=== PATIENT | male | born 1945 | race Caucasian/White ===

== ENCOUNTER 2023-08-06 08:37 | Outpatient (RCR) | payer MEDICARE, OTHER, SELFPAY | END 2023-08-06 23:59 | disposition home or self-care (01) | LOC: CRHB 08:37 | PROVIDERS: ATTENDING PHYSICIAN Internal Medicine Cardiovascular Disease | DX: I25.10 Atherosclerotic heart disease of native coronary artery without angina pectoris (principal); Z95.5 Presence of coronary angioplasty implant and graft; I25.2 Old myocardial infarction | CPT/HCPCS: G0422; G0423 ==

== ENCOUNTER → 2023-08-21 07:03 | Outpatient (REF) | payer MEDICARE, OTHER, SELFPAY ==
[2023-08-21 08:37] LABS: ALT (SGPT) 24 U/L (0-50); AST (SGOT) 27 U/L (17-59); HDL Cholesterol 41 mg/dl; LDL Cholesterol, Calculated 39 mg/dl; Total Cholesterol 113 mg/dl (50-199); Triglyceride 165 mg/dl (10-149); Very Low Density Lipoprotein 33 mg/dl (0-30)
== END ==
LOC: REG 07:03
PROVIDERS: ATTENDING PHYSICIAN Nurse Practitioner
DX: I25.10 Atherosclerotic heart disease of native coronary artery without angina pectoris (principal); I25.2 Old myocardial infarction
CPT/HCPCS: 36415; 80061; 84450; 84460

== ENCOUNTER 2023-09-03 08:55 | Outpatient (RCR) | payer MEDICARE, OTHER, SELFPAY | END 2023-09-03 23:59 | disposition home or self-care (01) | LOC: CRHB 08:55 | PROVIDERS: ATTENDING PHYSICIAN Internal Medicine Cardiovascular Disease; FAMILY PHYSICIAN Family Medicine | DX: I21.4 Non-ST elevation (NSTEMI) myocardial infarction (principal); Z95.5 Presence of coronary angioplasty implant and graft; I25.10 Atherosclerotic heart disease of native coronary artery without angina pectoris | CPT/HCPCS: G0422; G0423 ==

== ENCOUNTER 2023-09-15 09:55 | Outpatient (RCR) | payer MEDICARE, OTHER, SELFPAY | END 2023-09-15 23:59 | disposition home or self-care (01) | LOC: CRHB 09:55 | PROVIDERS: ATTENDING PHYSICIAN Internal Medicine Cardiovascular Disease; FAMILY PHYSICIAN Family Medicine | DX: I25.10 Atherosclerotic heart disease of native coronary artery without angina pectoris (principal); Z95.5 Presence of coronary angioplasty implant and graft | CPT/HCPCS: G0422; G0423 ==

== ENCOUNTER 2023-09-16 10:30 | Inpatient (IN) | payer MEDICARE, OTHER, SELFPAY ==
[2023-09-15] VITALS (7 sets, daily range): BP systolic 94–126; BP diastolic 63–85; BMI 32.5; BMI 30.6
[2023-09-15 15:50] LABS: % Basophils 0.5 % (0-2); % Eosinophils 1.4 % (0-6); % Immature Granulocytes 0.4 % (0-0.5); % Lymphocytes 34.8 % (20.5-51.1); % Monocytes 11.7 % (1.7-9.3); % Neutrophils 51.2 % (42.2-75.2); Absolute Eosinophils 0.1 10^3/uL (0-0.7); Absolute Lymphocytes 2.8 10^3/uL (1.2-3.4); Absolute Neutrophils 4.2 10^3/uL (1.4-6.5); Hematocrit 40.1 % (39.0-52.0); Hemoglobin 13.8 g/dL (13.0-18.0); Mean Corp Hgb Conc. 34.4 g/dL (33.0-37.0); Mean Corpuscular Hgb 30.5 pg (27.0-31.0); Mean Corpuscular Volume 88.7 fL (80.0-94.0); Mean Platelet Volume 10.4 fL (7.4-10.4); Nucleated Red Blood Cells % 0 % (-); Platelet Count 244 10^3/uL (130-400); Red Blood Cell Count 4.52 10^6/uL (4.70-6.10); Red Cell Dist. Width 12.3 % (11.5-14.5); White Blood Cell Count 8.1 10^3/uL (4.8-10.8)
[2023-09-15 16:04] LABS: ALT (SGPT) 27 U/L (0-50); AST (SGOT) 35 U/L (17-59); Albumin 4.5 g/dl (3.5-5.0); Alkaline Phosphatase 67 U/L (38-126); Blood Urea Nitrogen 19 mg/dl (9-20); Calcium 9.6 mg/dl (8.4-10.2); Carbon Dioxide 22 mmol/L (22-30); Chloride 101 mmol/L (98-107); Estimated Creatinine Clearance 84 ml/min; Glucose 123 mg/dl (70-99); Sodium 135 mmol/L (135-145); Total Bilirubin 0.6 mg/dl (0.2-1.3); Total Protein 7.6 g/dl (6.3-8.2); eGFR > 60.00
[2023-09-15 16:14] LABS: Troponin I < 0.012 ng/ml
--- NOTE | 2023-09-15 17:52 | ED.GENMED ---
History of Present Illness
General
Chief Complaint: Fainting/Passed Out
Source: patient
Exam Limitations: none
Time Seen by Provider: 09/15/23 16:57
Nursing documentation reviewed up to this point in time: agreed with
Travel History
Have you had any contact with someone who has COVID-19?: No
Do you have any symptoms of coronavirus? Fever > 100 degrees, chills, cough, shortness of breath, sore throat, loss of taste or smell, muscle aches, or headache?: No
History of Present Illness
History of Present Illness:
77-year-old male presents emergency ferment due to syncope episode. He was sitting on a bench after gardening, and passed out and fell forward onto his face. He does not remember the event. He denies have any symptoms prior to it. He hit his
nose. He takes Plavix.
Past History
Past History
ED Past Medical History: Other (Hepatitis C , Vertigo)
ED Past Surgical History: Appendectomy
Social History
Tobacco: Non-smoker
Alcohol: Occasional
Personal:
Living: with family
Family History
Family History: Diabetes and Hypertension
Review of Systems
Review of Systems
Allergies reviewed?: Yes
All Other Systems: Not applicable
Constitutional: Reports no symptoms
EENT: Reports no symptoms
Respiratory: Reports no symptoms
Cardiac: Reports syncope
ABD/GI: Reports no symptoms
: Reports no symptoms
Musculoskeletal: Reports no symptoms
Skin: Reports no symptoms
Neurological: Reports no symptoms
Endocrine: Reports no symptoms
Hematologic/Lymphatic: Reports no symptoms
Psychiatric: Reports no symptoms
Phy Exam
Physical Exam
Physical Exam:
Physical Exam
General: no apparent distress, not acutely ill
Neck: supple. no meningeal signs. normal posterior pharynx
Heart: s1/s2 regular rate and rhythm, no murmur. equal radial
pulses.
HEENT: Pupils equal round reactive to light, EOMI, nasal swelling
Lungs: no acute respiratory distress. clear bilaterally
Abdomen: normal bowel sounds. not tender. no CVAT
Neuro: alert and oriented. no focal neurological deficits cranial nerves II through XII intact
Skin: no rash
Psychiatric: well kept. interactive and cooperative
Extremities: no edema. no calf tenderness. negative homans. good distal pulses
Course
Orders/Labs/Results
Orders:
Orders
09/15/23 15:25
EKG [Electrocardiogram (*1)] Urgent
Reason for Study: Syncope
EKG- Treatment ONCE
09/15/23 15:34
Complete Blood Count/With Diff Urgent
Comprehensive Metabolic Panel Urgent
Troponin I Urgent
09/15/23 17:50
CT Head W/o Iv Contrast Urgent
Comment:
Reason For Exam: syncope, fall
Abnormal Lab Results
09/15/23
15:34
RBC 4.52 L 10^6/uL
(4.70-6.10)
Absolute Monos (auto) 1.0 H 10^3/uL
(0.1-0.6)
Monocytes % 11.7 H %
(1.7-9.3)
Glucose 123 H mg/dl
(70-99)
09/15/23 15:34
09/15/23 15:34
Vital Signs
Initial and Last Documented VS:
Initial Vital Signs
BP
106/78
09/15/23 15:29
Last Documented Vital Signs
Temp Pulse Resp BP Pulse Ox
98.6 F 64 15 106/69 96
09/15/23 15:31 09/15/23 18:30 09/15/23 18:30 09/15/23 18:00 09/15/23 18:30
MDM/Problems Addressed
Differential Diagnosis Includes:
Dysrhythmia, intracranial hemorrhage
MDM/Problems Addressed:
77-year-old male with syncope episode without prodrome. Vital signs stable in ED. No signs of dysrhythmia on monitor EKG. Admit for further monitoring.
Chronic conditions affecting care: CAD
Acute Exacerbation and/or Progression of Chronic Illness: CAD
*Radiology
Radiology exam reviewed: radiology read reviewed (CT head no acute findings)
*Pulse Oximetry
Patient hypoxic: no
*EKG
Interpreted by ED Provider?: Yes
EKG Intrepretation Date: 09/15/23
EKG Intrepretation Time: 15:28
Interpretation: normal
Comparison EKG: changes noted
Heart Rate: 74
Rate: normal
Rhythm: sinus
Linden: normal axis
Interval: normal interval
QRS Pattern: normal QRS
Ischemia: no ischemia
*Pulverizer Mill Operator Interpretation
Rate: normal
Interpretation: normal
Heart Rate: 75
Rhythm: sinus
*Critical Care Note
Total Time (30-74mins, 75-104mins- exclusive of procedures): Not Applicable
Data Reviewed
Review of Other/Old Records Reveals: Operative Reports
Source: records (Cardiac catheterization by Dr. Chavez on 06/30/2023 stent to mid LAD)
Further Testing Considered But Not Given:
CT chest not indicated
Patient Management
Social determinants of health affecting care: Living situation
Discussion with other providers: Hospitalist
Escalation/DeEscalation of care consider admission/obs:
Admit indicated
ED Attending Note
-
Portions of this chart may have been created with voice recognition software.� Occasional wrong word or��sound alike� substitutions may have occurred due to the inherent limitations of voice recognition software.
Discharge Plan
Departure
Patient Disposition: Admit
Date of Disposition: 09/15/23
Time of Disposition: 19:13
Admit to: Telemetry
Presentation/result/management discussed w/ accepting MD/DO: Hospitalist
Patient with high blood pressure during this ER visit?: No
Condition: Good
Discharge Problem:
Syncope and collapse, Contusion of nose
Prescriptions:
No Action
multivitamin with folic acid [Tab-A-Liz] 1 TABLET tablet
1 tab PO DAILY
atorvastatin 40 mg Tablet
40 mg PO QPM Qty: 30 0RF
nitroglycerin 0.4 mg Tablet, Sublingual
0.4 mg sublingual [id number] PRN (Reason: chest pain) Qty: 30 0RF
aspirin [Children's Aspirin] 81 mg Tablet,Chewable
81 mg PO DAILY Qty: 60 0RF
clopidogrel 75 mg Tablet
75 mg PO DAILY Qty: 30 0RF
metoprolol succinate 25 mg Tablet Extended Release 24 Hr
25 mg PO BID Qty: 60 0RF
lisinopril 2.5 mg Tablet
2.5 mg PO DAILY Qty: 30 0RF
Referrals:
Lilliam Batista MD [Family Provider] -
Interventions
Interventions:
*Risk Screen - Suicide Last Done: 09/15/23 15:32
*General Assessment Last Done: 09/15/23 15:32
*Neglect/Abuse Screening Last Done: 09/15/23 15:32
*ED COVID-19 Vaccine History Last Done: 09/15/23 15:32
ED- Cardiac Assessment Last Done: 09/15/23 15:33
ED- Neurological Assessment Last Done: 09/15/23 15:33
Discharge Date and Time
Print Language: SYRIAC
--- NOTE | 2023-09-15 19:40 | HPS.HSE ---
Addendum entered and electronically signed by Kathleen Riley MD 09/15/23 21:08:
Nasal xray cancelled since patient has CT head without evidence of nasal fracture.
Addendum entered and electronically signed by Kathleen Riley MD 09/15/23 19:45:
Cardiology consulted.
Original Note:
Family Physician
-
Family Physician: Lilliam Batista MD
Chief Complaint
-
syncope
History of Present Illness
77-year-old male past medical history of CAD, STEMI this June status post stent, ischemic cardiomyopathy, essential hypertension, prediabetes, GERD, hepatitis C status posttreatment, obesity, presenting with syncopal episode. He was sitting on a
bench after gardening and passed out and fell forward onto his face. He was unconscious for few seconds. He only remembers waking up with nasal pain and bleeding from the nose. Denies any preceding symptoms such as chest pain or shortness of
breath or nausea or dizziness. Denies any recent chest pain, shortness of breath, dizziness. He denies any prior episodes of syncope.
Patient recently had a STEMI in June status post LAD stenting. He has been attending cardiac rehab 3 times per week since then without any problems.
He denies smoking or alcohol.
Medical History
Past Medical History
Past Medical History: Reports Other ( CAD, STEMI this June status post stent, essential hypertension, prediabetes, GERD, hepatitis C status posttreatment, obesity)
Past Surgical History: Reports None
Social History
Tobacco: Non-smoker
Alcohol: None
Drug: None
Family History
Family History: Not pertinent
Allergies / Home Medications
Allergies reflects when Allergies were last updated in [facility].
Home Medications with original date entered in [facility]
Allergy/Medication List:
Allergies
Allergy/AdvReac Type Severity Reaction Status Date / Time
No Known Allergies Allergy Verified 09/15/23 15:24
Home Medications
clopidogrel 75 mg tablet 75 mg PO DAILY #30 tabs 07/02/23
lisinopril 2.5 mg tablet 2.5 mg PO DAILY #30 tabs 07/02/23
metoprolol succinate 25 mg tablet,extended release 24 hr 25 mg PO BID #60 tabs 07/02/23
aspirin 81 mg tablet,delayed release 81 mg PO DAILY 09/15/23
atorvastatin 20 mg tablet 20 mg PO QPM 09/15/23
cholecalciferol (vitamin D3) 25 mcg (1,000 unit) tablet 25 mcg PO DAILY 09/15/23
coenzyme Q10 100 mg capsule (CoQ-10) 100 mg PO BID 09/15/23
cyanocobalamin (vitamin B-12) 500 mcg tablet 500 mcg PO DAILY 09/15/23
multivitamin with folic acid 400 mcg tablet (Tab-A-Liz) 1 tab PO DAILY 09/15/23
Review of Systems
-
History Source: Patient
A 12 point ROS was completed and negative except as noted: Yes
Constitutional: Reports No Symptoms
EENT: Reports No Symptoms
Respiratory: Reports No Symptoms
Cardiac: Reports No Symptoms
Abdomen/GI: Reports No Symptoms
: Reports No Symptoms
Musculoskeletal: Reports No Symptoms
Skin: Reports No Symptoms
Neurological: Reports No Symptoms
Endocrine: Reports No Symptoms
Hematologic/Lymphatic: Reports No Symptoms
Psych: Reports No Symptoms
Physical Exam
Vital Signs
Vital Signs
Temp Pulse Resp BP Pulse Ox
98.6 F 64 15 106/69 96
09/15/23 15:31 09/15/23 18:30 09/15/23 18:30 09/15/23 18:00 09/15/23 18:30
Physical Exam
General: Well Developed, Well Nourished and No Apparent Distress
HEENT: NormoCephalic, Moist mucous membranes and Atraumatic
Respiratory: Clear
Cardiac: S1/S2 and Regular Rhythm; No Murmur or Rub
GI: Soft, Non Tender, Non Distended and Normal Bowel Sounds; No Organomegaly
Rectal: Deferred by Provider
Musculoskeletal: No Clubbing, No Cyanosis and No Edema
Skin: No Rash
Neuro: Nonfocal/grossly intact
Laboratory Results
-
09/15/23 15:34
09/15/23 15:34
Laboratory Results
Total Bilirubin 0.6 mg/dl (0.2-1.3) 09/15/23 15:34
AST 35 U/L (17-59) 09/15/23 15:34
ALT 27 U/L (0-50) 09/15/23 15:34
Alkaline Phosphatase 67 U/L (38-126) 09/15/23 15:34
Troponin I < 0.012 ng/ml 09/15/23 15:34
Data Reviewed
-
Lab Data: Labs Reviewed by me
Old Records: Reviewed
Impression/Plan
-
IMPRESSION:
PLAN:
# Syncopal episode without prodrome suggestive of cardiac arrhythmia
-CT head shows no acute intracranial abnormality
-EKG shows normal sinus rhythm,
-Telemetry monitoring
-Recent echo from June showed EF of 40%
# Nasal contusion
-No pain or bleeding currently
-Check nasal x-ray
# Coronary artery disease
# Recent STEMI status post LAD stent
-Continue aspirin, Plavix
#History of ischemic cardiomyopathy
-EF of 40%
Mild mitral regurgitation
Essential hypertension
-Continue lisinopril, metoprolol
Prediabetes
Hyperlipidemia
-Continue statin
GERD
History of HCV status posttreatment
Obesity
Full code
DVT prophylaxis�SCDs
Regular diet
[2023-09-15] MEDS: TOPROL XL 25 MG PO (21:50)
[2023-09-16 03:48] VITALS: BP 130/74
[2023-09-16 06:00] VITALS: BMI 30.6
[2023-09-16 07:30] VITALS: BP 146/89
[2023-09-16 08:20] LABS: % Basophils 0.4 % (0-2); % Eosinophils 1.9 % (0-6); % Immature Granulocytes 0.3 % (0-0.5); % Lymphocytes 23.4 % (20.5-51.1); % Monocytes 12.9 % (1.7-9.3); % Neutrophils 61.1 % (42.2-75.2); Absolute Eosinophils 0.1 10^3/uL (0-0.7); Absolute Lymphocytes 1.6 10^3/uL (1.2-3.4); Absolute Monocytes 0.9 10^3/uL (0.1-0.6); Absolute Neutrophils 4.2 10^3/uL (1.4-6.5); Hematocrit 41.2 % (39.0-52.0); Hemoglobin 13.8 g/dL (13.0-18.0); Mean Corp Hgb Conc. 33.5 g/dL (33.0-37.0); Mean Corpuscular Hgb 30.3 pg (27.0-31.0); Mean Corpuscular Volume 90.5 fL (80.0-94.0); Mean Platelet Volume 10.2 fL (7.4-10.4); Nucleated Red Blood Cells % 0 % (-); Platelet Count 219 10^3/uL (130-400); Red Blood Cell Count 4.55 10^6/uL (4.70-6.10); Red Cell Dist. Width 12.4 % (11.5-14.5); White Blood Cell Count 6.8 10^3/uL (4.8-10.8)
--- NOTE | 2023-09-16 08:32 | CON.CAR ---
Addendum entered and electronically signed by Subhash De MD 09/16/23 10:22:
I saw and examined the patient.
The INTERN ARCHITECT's note was reviewed and I agree with the note.
Comment: This is high-risk syncope. Given late presentation with anterior W[place] in late Jun 2023 and EF 40% at that time and now abrupt syncope with trauma and no real prodrome the DDx is VT/VF vs sick sinus syndrome from the arrhythmia perspective.
Seems cortez to believe this was arrhythmic syncope. If EF low on echo today then ICD tomorrow. If good EF then EPS and EP guided therapy. Pt agrees to proceed.
Original Note:
Consultation
Consultation Request
Date/Time Consultation Requested: 09/15/232214
Date/Time Consultation Performed: 09/16/23 0800
Requesting Provider: Dr. Riley
Performing Provider: Vonnie HAGEN for Dr. De
Reason for Consultation: syncope
Medical History
-
Chief Complaint: syncope
History of Present Illness:
77 y/o male with CAD s/p NSTEMI 06/30/23 (MICHELLE to LAD), ICM with EF 40%, dyslipidemia, prediabetes, and treated Hep C who is here for evaluation of an episode of syncope yesterday afternoon. Briefly, he has been feeling quite well recently. He has
been participating in cardiac rehab without difficulty. Denies any CP or SOB. Yesterday afternoon, he and his were doing some yard-work (picking up sticks, climbing ladder). He went to sit down because his lower back was bothering him. Then he
is told he fell forward and passed out. He had no felt any dizziness prior. His alerted EMS. Per EMS report, his BP was 99/60, blood sugar 104, HR 88.
Past Medical History
Past Medical History: CAD, Hypercholesterolemia and Other (ICM, hep C (treated), preDM)
Social History
Tobacco: Former Smoker
Personal:
Living: With Family
Family History
Family History: Reviewed & Not Pertinent
Allergies / Home Medications
Allergy/AdvReac Type Severity Reaction Status Date / Time
No Known Allergies Allergy Verified 09/15/23 15:24
�Medication �Instructions �Recorded �Confirmed �Type
clopidogrel 75 mg tablet 75 mg PO DAILY #30 tabs 07/02/23 09/15/23 Rx
lisinopril 2.5 mg tablet 2.5 mg PO DAILY #30 tabs 07/02/23 09/15/23 Rx
metoprolol succinate 25 mg 25 mg PO BID #60 tabs 07/02/23 09/15/23 Rx
tablet,extended release 24 hr
aspirin 81 mg tablet,delayed 81 mg PO DAILY 09/15/23 09/15/23 History
release
atorvastatin 20 mg tablet 20 mg PO QPM 09/15/23 09/15/23 History
cholecalciferol (vitamin D3) 25 25 mcg PO DAILY 09/15/23 09/15/23 History
mcg (1,000 unit) tablet
coenzyme Q10 100 mg capsule 100 mg PO BID 09/15/23 09/15/23 History
(CoQ-10)
cyanocobalamin (vitamin B-12) 500 500 mcg PO DAILY 09/15/23 09/15/23 History
mcg tablet
multivitamin with folic acid 400 1 tab PO DAILY 09/15/23 09/15/23 History
mcg tablet (Tab-A-Liz)
Review of Systems
-
History Source: Patient
All other systems: Negative unless noted
Constitutional: Other (back pain)
Cardiac: Syncope
Physical Exam
Vital Signs
Temp Pulse Resp BP Pulse Ox
97.5 F 56 18 130/74 96
09/16/23 03:48 09/16/23 03:48 09/16/23 03:48 09/16/23 03:48 09/16/23 03:48
Lab Results
09/16/23 07:42
Troponin I < 0.012 ng/ml 09/15/23 15:34
Physical Exam
General: Well Developed, Well Nourished and No Apparent Distress
HEENT: Normocephalic, Anicteric and Other (laceration to nose)
Respiratory: Clear and Non Labored Respirations
Cardiac: Regular Rhythm
Musculoskeletal: No Edema
Skin: Warm and Dry
Neuro: AO x 3
Psych: Calm
Impression / Plan
-
Syncope:
-without prodrome- high risk (concern for arrhythmia)
-EKG and tele are stable
-follow tele, update echo now
-If EF low, plan for ICD. If EF is normal, EPS.
CAD s/p LAD stent 06/2023:
-stable without CP or SOB
-trop and EKG stable
-continue DAPT with ASA/plavix
-continue statin, BB, ACEI
ICM EF 40%:
-denies SOB
-appears euvolemic
-on ACEI and BB
-we will update echo
Dyslipidemia:
-continue statin
Data Reviewed
-
EKG: Tracing Personally Visualized and interpreted (SR 74 BPM)
Medical Tests (Nuc Med, Echo etc): Report Reviewed by me (Cath 06/30/23: stenting of total mid LAD occlusion. Medical management for RCA: 30% mid RCA stenosis. There is a large PDA with focal 80% mid to distal stenosis.) and Other (Echo 06/30/23:
Normal LV size with mild to moderately reduced systolic function. Estimated ejection fraction of 40%. LAD territory akinesis. Stage I diastolic dysfunction suggestive of abnormal relaxation. )
Labs: Labs Reviewed by me
[2023-09-16 08:43] LABS: ALT (SGPT) 26 U/L (0-50); AST (SGOT) 33 U/L (17-59); Albumin 4.1 g/dl (3.5-5.0); Alkaline Phosphatase 60 U/L (38-126); Blood Urea Nitrogen 17 mg/dl (9-20); Calcium 9.2 mg/dl (8.4-10.2); Carbon Dioxide 25 mmol/L (22-30); Chloride 105 mmol/L (98-107); Estimated Creatinine Clearance 97 ml/min; Glucose 105 mg/dl (70-99); Potassium 4.4 mmol/L (3.5-5.1); Sodium 136 mmol/L (135-145); Total Bilirubin 0.9 mg/dl (0.2-1.3); eGFR > 60.00
--- NOTE | 2023-09-16 10:23 | W.PN.HOSP.TC ---
Today's Communication/Plan
-
Continue cardiac monitoring. Cardiology eval. Echocardiogram
Assessment / Plan
Assessment / Plan
Physical exam:
General: Well Developed, Well Nourished and No Apparent Distress
HEENT: Normocephalic, Atraumatic and Moist Mucous Membranes
Respiratory: Clear to Auscultation; Negative Wheezes, Rales or Rhonchi
Cardiac: Regular Rhythm and S1/S2
GI: Soft, Nontender and Nondistended
Musculoskeletal: No Clubbing, No Cyanosis and No Edema
Neuro: Awake, Alert and Oriented
Psych: Calm
A/P:
# Syncopal episode without prodrome suggestive of cardiac arrhythmia
-CT head shows no acute intracranial abnormality
-EKG shows normal sinus rhythm,
-Telemetry monitoring
-Recent echo from June showed EF of 40%
-Discussed with cardiology today
-Plan to repeat echocardiogram and if EF still low plan for ICD and if better then will need EPS evaluation and EP guided therapy.
-Will change to inpatient given high risk syncope that requires further workup and management per cardiology as mentioned above and obviously requires inpatient hospitalization for such otherwise at high risk of increased morbidity and mortality.
# Nasal contusion
-No pain or bleeding currently
-Check nasal x-ray
# Coronary artery disease
# Recent STEMI status post LAD stent
-Continue aspirin, Plavix
#History of ischemic cardiomyopathy
-EF of 40%
Mild mitral regurgitation
Essential hypertension
-Continue lisinopril, metoprolol
Prediabetes
Hyperlipidemia
-Continue statin
GERD
History of HCV status posttreatment
Obesity
Full code
DVT prophylaxis�SCDs
Regular diet
Total time spent on today's encounter was 52 minutes which included time spent in counseling the patient/family regarding diagnosis and treatment plan as listed above, goals of care, and symptom management. Case was discussed with nursing staff,
specialists, and care coordinators/case management. All labs and imaging personally reviewed by me. Remainder the time spent in detailed review of previous records, lab data, imaging, and other medical provider documentation.
Anticipated Discharge: > 48 hours
Subjective/Interval History
-
Date of Service: September 16, 2023
Patient denies chest pain or shortness of breath today. No further syncope
Objective Data
-
Labs:
Laboratory Results
09/16/23
07:42
WBC 6.8
Hgb 13.8
Hct 41.2
Plt Count 219
Sodium 136
Potassium 4.4
Chloride 105
Carbon Dioxide 25
BUN 17
Creatinine 0.7
Glucose 105 H
Calcium 9.2
Total Bilirubin 0.9
AST 33
ALT 26
Alkaline Phosphatase 60
Vital Signs:
Vital Signs
Temp Pulse Resp BP Pulse Ox
97.3 F 63 18 146/89 97
09/16/23 07:30 09/16/23 07:30 09/16/23 07:30 09/16/23 07:30 09/16/23 07:30
[2023-09-16] MEDS: ASPIR LOW (ENTERIC COATED) 81 MG PO (10:28)
[2023-09-16] MEDS: ZESTRIL 2.5 MG PO (10:28)
[2023-09-16] MEDS: THERAGRAN 1 TABLET PO (10:29)
[2023-09-16] MEDS: TOPROL XL 25 MG PO ×2 (10:29→20:19)
[2023-09-16] MEDS: VITAMIN D3 (cholecalciferol) 25 MCG PO (10:29)
[2023-09-16] MEDS: VITAMIN B-12 500 MCG PO (10:29)
[2023-09-16] MEDS: PLAVIX 75 MG PO (10:29)
[2023-09-16 16:19] VITALS: BP 121/71
[2023-09-16] MEDS: LIPITOR 20 MG PO (17:30)
[2023-09-16 19:30] VITALS: BP 126/73
--- NOTE | 2023-09-16 20:35 | PTCARENOTE ---
Addendum entered by Drake Whatley RN 09/17/23 06:29:
Dr. Papito Guo of [facility] notified of pts. refusal. No orders given.
Original Note:
Upon assessment pt. stated that they did not want AICD placement in AM. [facility] notified. RN told to reach out to tire shop mechanic in AM, care ongoing.
[2023-09-16 23:25] VITALS: BP 112/55
[2023-09-17] VITALS (7 sets, daily range): BP systolic 118–153; BP diastolic 60–84
[2023-09-17 05:57] LABS: Hematocrit 42.4 % (39.0-52.0); Hemoglobin 14.1 g/dL (13.0-18.0); Mean Corp Hgb Conc. 33.3 g/dL (33.0-37.0); Mean Corpuscular Hgb 30.9 pg (27.0-31.0); Mean Corpuscular Volume 92.8 fL (80.0-94.0); Mean Platelet Volume 10.1 fL (7.4-10.4); Platelet Count 240 10^3/uL (130-400); Red Blood Cell Count 4.57 10^6/uL (4.70-6.10); Red Cell Dist. Width 12.4 % (11.5-14.5)
[2023-09-17 06:33] LABS: Blood Urea Nitrogen 17 mg/dl (9-20); Calcium 9.1 mg/dl (8.4-10.2); Carbon Dioxide 26 mmol/L (22-30); Chloride 105 mmol/L (98-107); Estimated Creatinine Clearance 85 ml/min; Glucose 109 mg/dl (70-99); Potassium 4.1 mmol/L (3.5-5.1); Sodium 138 mmol/L (135-145); eGFR > 60.00
[2023-09-17] MEDS: VITAMIN B-12 500 MCG PO (08:13)
[2023-09-17] MEDS: ASPIR LOW (ENTERIC COATED) 81 MG PO (08:13)
--- NOTE | 2023-09-17 08:13 | W.PN.HOSP.TC ---
Today's Communication/Plan
-
Plan for ICD.
Assessment / Plan
Assessment / Plan
Physical exam:
General: Well Developed, Well Nourished and No Apparent Distress
HEENT: Normocephalic, Atraumatic and Moist Mucous Membranes
Respiratory: Clear to Auscultation; Negative Wheezes, Rales or Rhonchi
Cardiac: Regular Rhythm and S1/S2
GI: Soft, Nontender and Nondistended
Musculoskeletal: No Clubbing, No Cyanosis and No Edema
Neuro: Awake, Alert and Oriented
Psych: Calm
A/P:
# Syncopal episode without prodrome suggestive of cardiac arrhythmia
-CT head shows no acute intracranial abnormality
-EKG shows normal sinus rhythm,
-Telemetry monitoring
-Recent echo from June showed EF of 40%
-Updated echocardiogram with EF of 50%
-Plan for ICD today
-Updated over the phone today on 09/16
# Nasal contusion
-No pain or bleeding currently
-Check nasal x-ray
# Coronary artery disease
# Recent STEMI status post LAD stent
-Continue aspirin, Plavix
#History of ischemic cardiomyopathy
-EF of 40%
Mild mitral regurgitation
Essential hypertension
-Continue lisinopril, metoprolol
Prediabetes
Hyperlipidemia
-Continue statin
GERD
History of HCV status posttreatment
Obesity
Full code
DVT prophylaxis�SCDs
Regular diet
Total time spent on today's encounter was 52 minutes which included time spent in counseling the patient/family regarding diagnosis and treatment plan as listed above, goals of care, and symptom management. Case was discussed with nursing staff,
specialists, and care coordinators/case management. All labs and imaging personally reviewed by me. Remainder the time spent in detailed review of previous records, lab data, imaging, and other medical provider documentation.
Anticipated Discharge: 24 - 48 hours
Subjective/Interval History
-
Date of Service: September 17, 2023
Patient has no chest pain or shortness of breath.
Objective Data
-
Labs:
Laboratory Results
09/17/23
05:31
WBC 7.0
Hgb 14.1
Hct 42.4
Plt Count 240
Sodium 138
Potassium 4.1
Chloride 105
Carbon Dioxide 26
BUN 17
Creatinine 0.8
Glucose 109 H
Calcium 9.1
Vital Signs:
Vital Signs
Temp Pulse Resp BP Pulse Ox
98.1 F 59 17 130/67 96
09/17/23 07:52 09/17/23 07:52 09/17/23 07:52 09/17/23 07:52 09/17/23 07:52
I&O
09/16/23 09/17/23 09/18/23
06:59 06:59 06:59
Intake Total 840 / 840
Balance 840 / 840
[2023-09-17] MEDS: PLAVIX 75 MG PO (08:14)
[2023-09-17] MEDS: TOPROL XL 25 MG PO ×2 (08:14→20:27)
[2023-09-17] MEDS: THERAGRAN 1 TABLET PO (08:14)
[2023-09-17] MEDS: VITAMIN D3 (cholecalciferol) 25 MCG PO (08:14)
[2023-09-17] MEDS: ZESTRIL 2.5 MG PO (08:20)
--- NOTE | 2023-09-17 11:37 | W.PN.CD ---
Today's Communication / Plan
-
- ICD today
Impression / Plan
-
Syncope:
-without prodrome- high risk (concern for arrhythmia)
- NSTEMI - 4 months ago - mid LAD occlusion and distal disease along with RCA disease
- Wall motion abnormalities noted on ECHO - LVEF improved but not normal.
- EKG and tele are stable
- follow tele, update echo now
- with structural heart disease, high suspicious syncope / cardiac arrest, would recommend ICD. Would not be safe not to place ICD even if the EP study is negative.
- Discussed with the patient and is in agreement to proceed with ICD.
CAD s/p LAD stent 06/2023:
- NSTEMI with peak Trop 10.8
- C - Guidera 06/30/23
1. Non-STEMI presentation with peak troponin 8.3
2: Severe distal anterolateral, apical and inferoapical hypokinesis with EF 43%
3. Double vessel CAD as described
4. Successful stenting of total mid LAD occlusion using 3.0 x 33 Xience MICHELLE postdilated with 3.25 mm noncompliant balloon with outstanding final result
-Total Occlusion in jul 01 with NSTEMI - PCI with 100% occlusion and disease post occlusion
-LVEF was low and repeat ECHO showed imporved but still mildly reduced EF with mid to apical anterior wall hypokinesis.
-trop and EKG stable
-continue DAPT with ASA/plavix
-continue statin, BB, ACEI
ICM EF 40%:
-denies SOB
-appears euvolemic
-on ACEI and BB
-we will update echo
Dyslipidemia:
-continue statin
Physical Exam
Vital Signs/Labs
Vital Signs
Temp Pulse Resp BP Pulse Ox
98.1 F 59 17 130/67 96
09/17/23 07:52 09/17/23 08:14 09/17/23 07:52 09/17/23 08:14 09/17/23 08:15
09/16/23 09/17/23 09/18/23
06:59 06:59 06:59
Actual Weight 88.564 kg
09/17/23 05:31
09/17/23 05:31
Magnesium 2.0 mg/dl (1.6-2.3) 09/16/23 07:42
LAB Results
09/15/23
15:34
Troponin I < 0.012
Physical Exam
Constitutional: No acute distress and Comfortable
EENT: Anicteric and Moist mucous membranes
Cardiovascular: Rhythm & rate is regular, Pedal edema is absent, JVD pressure is normal and Systolic murmur present
Respiratory: Respiratory effort normal, Lungs clear to auscul. and Wheeze Absent
GI: Soft and Non tender
Neuro/Psych: Alert, Oriented and AO x 3
Other: Cardiac Device Site
Data Reviewed
-
Date of Service: September 17, 2023
Medical Decision Making: Reviewed Test Results, Independent Historian Assessment, Test Interpretation and Review of Case with other Provider
EKG: Tracing Personally Visualized and interpreted
Echo: Tracing Personally Visualized and interpreted
X-Ray/CT/US/MRI/NUC/PET: Image Personally Visualized and interpreted
Labs: Labs Reviewed by me
Old Records: Reviewed
--- NOTE | 2023-09-17 13:33 | ITS.CL.ICD ---
Tag Meter Operator - ICD
Implantable Cardioverter Defibrillator
Procedure Report:
Single Chamber Implantable Cardioverter Defibrillator (ICD) Placement:
Mr. Hill is a very pleasant 77 years old gentleman with CAD, NSTEMI with mid LAD occlusion presented with out of hospital cardiac arrest with fall and facial injury high suspicion for ventricular arrhythmia with donal-apical scarring with
wall motion abnormality is recommended ICD placement.
Indications: Secondary prevention of sudden cardiac
Date of the Procedure: 09/17/2023
Pre-Operative Diagnosis: Cardiac arrest
Post-Operative Diagnosis: Cardiac arrest
Procedure Performed: SINGLE CHAMBER IMPLANTABLE CARDIOVERRTER DEFIBRILLATOR IMPLANTATION
Performing physician:
Triny Murrell MD
Anesthesia:
See anesthesia records
Detailed Description of the Procedure:
The patient was identified using hospital identification and informed consent obtained for the procedure. The risks were explained including, but not limited to: Bleeding, infection, arrhythmia, stroke, vascular/cardiac/lung puncture, surgery,
pacemaker dependency/device malfunction. All questions were answered.
The patient was brought to the electrophysiology laboratory in stable condition in fasting state. Continuous electrocardiographic and hemodynamic monitoring was initiated. The initial rhythm was normal sinus.
The procedure site was meticulously prepared with surgical scrub and allowed to dry with no pooling. Sterile draping was applied to cover the procedure site. The image intensifier was draped with sterile bag and positioned over the patient.
The left infra-clavicular region was prepped and draped in the usual sterile fashion. Local anesthesia was administered subcutaneously using 1% lidocaine / epinephrine. The left cephalic vein cut down was performed, and vascular sheath was
introduced for lead access. The guide wire was advanced into the inferior vena cava. The right ventricular defibrillator lead was advanced into the RV cavity and secured in RV apical septal position with an active fixation technique. There was
excellent sensing, pacing, and impedance from the leads, with no diaphragmatic stimulation at 10 V output.�Bovie cautery, antibiotics, and fluoroscopy were used.
The sheath was withdrawn, and the thresholds remained acceptable. The lead was secured in position at the venous entry site with 0-silk. A pocket was fashioned contiguous to the incision. The electrode terminals were connected to the pulse
generator, which was placed into the pocket. The wound was irrigated thoroughly with antibiotic solution and closed in 3 layers using 2-0, V loc sutures followed by two layers of 4-0 V loc sutures. Steri-Strips and a bandage were applied externally.�
Procedure End:
The procedure was tolerated well. A pressure bandage was applied to the incision area to be removed in a day.
Estimated Blood loss:
5 cc
Specimens Removed:
No cultures and no specimens were obtained. No intraoperative pathology was identified.
Urine output:
None
Packs / Drains/ Tubes:
None
Instrument / Sponge Count Correct:
Yes
Fluoro Time: (EP study and ICD)
0.4 min / 5 mGy
Complications of the Procedure:
None
Condition of Patient at Time of Transfer:
Hemodynamically stable with no neurological or vascular compromise.
Device information:�
Generator: [employer]; Model: [id number]; Serial # [id number]�
RV Lead: [employer]; Model: 6935M-62; Serial # [id number]
Measured data in the RV lead was sensing of 9.6 mV, impedance of 513ohms and threshold of 0.75 V at 0.4ms�
PROGRAMMING PARAMETERS:�
Junior parameter settings were VVI 40 bpm. �
����������� Rate Adaptive A-V Interval: Off
Tachy parameter settings:
����������� SVT discrimination: On
����������� AF/AFl: Off
����������� Wavelet: On
����������� SVT limit: 260 msec
����������� VT zone:
Slow VT: 150-170 bpm --> Monitor
����������������������� VT: 170-200bpm� ATP x6
����������������������� Fast VT: >200 bpm � ATP while charging then Shock� x6
�����������
Summary:
Successful implantation of MRI compatible single chamber Med[employer]onic ICD
Results/Recommendations:
-Please follow up CXR�
1. Please provide patient with adequate pain control�
Instructions to be given to patient:�
- Please follow up with [facility] at [address] [place] [address] ([phone]) to get your wound checked within 7 days of your discharge.
- Do not wet incision site until after it is evaluated at cardiology clinic. No showers until then. Sponge baths are OK.�
- Allow 'steri strips' to fall off on their own�
- Do not lift left elbow above shoulder, particularly with sudden jerking movements, for 1 month�
- Do not lift anything weighing more than 5 pounds with the left arm for 1 month�
- If you notice any fevers, shortness of breath, lightheadedness, chest pain, or worsening swelling in the wound site, please contact the arrhythmia clinic, contact your basketball scout, or present to the hospital for evaluation.�
Triny Murrell MD
Electrophysiology
--- NOTE | 2023-09-17 15:12 | CM ---
Attempted to speak with patient at bedside; he was drowsy after his procedure
Spoke with patient's via phone; initial assessment completed
Pharmacy verified: [facility], [facility], [place]
reported that they live in a multilevel home; 3 steps to enter; 13 steps between floors; 3/4 bath on 1st floor includes a stall shower; 2nd floor full bath has shower stall with grab bar
PLOF: reported that was independent with ambulation, ADLs, and stairs; drives; goes to Outpatient Therapy twice a week
DME: none
SNF/Rehab/Home Health utilization history: none
had questions about procedure and stated that she has not spoken to a physician. Contacted Attending via [place] Text and asked him to call @ [phone] to provide an update
Plan: goal is home with . CM will monitor for discharge needs
[2023-09-17] MEDS: LIPITOR 20 MG PO (17:30)
[2023-09-17] MEDS: ANCEF 5 IV (20:27)
[2023-09-18] MEDS: ANCEF 5 IV (03:25)
[2023-09-18 03:55] VITALS: BP 125/73
[2023-09-18 07:30] VITALS: BP 121/65
[2023-09-18] MEDS: THERAGRAN 1 TABLET PO (08:36)
[2023-09-18] MEDS: ZESTRIL 2.5 MG PO (08:36)
[2023-09-18] MEDS: VITAMIN B-12 500 MCG PO (08:36)
[2023-09-18] MEDS: VITAMIN D3 (cholecalciferol) 25 MCG PO (08:36)
[2023-09-18] MEDS: PLAVIX 75 MG PO (08:36)
[2023-09-18] MEDS: TOPROL XL 25 MG PO (08:37)
[2023-09-18] MEDS: ASPIR LOW (ENTERIC COATED) 81 MG PO (08:37)
--- NOTE | 2023-09-18 08:42 | W.PN.HOSP.TC ---
Addendum entered and electronically signed by Paul Causey MD 09/18/23 14:24:
Cardiac arrest is valid diagnosis, per EP eval cardiac arrest aborted.
Original Note:
Today's Communication/Plan
-
PT OT eval. Discharge planning in progress
Assessment / Plan
Assessment / Plan
Physical exam:
General: Well Developed, Well Nourished and No Apparent Distress
HEENT: Normocephalic, Atraumatic and Moist Mucous Membranes
Respiratory: Clear to Auscultation; Negative Wheezes, Rales or Rhonchi
Cardiac: Regular Rhythm and S1/S2
GI: Soft, Nontender and Nondistended
Musculoskeletal: No Clubbing, No Cyanosis and No Edema
Neuro: Awake, Alert and Oriented
Psych: Calm
A/P:
# Syncopal episode without prodrome suggestive of cardiac arrhythmia
-CT head shows no acute intracranial abnormality
-EKG shows normal sinus rhythm,
-Telemetry monitoring
-Recent echo from June showed EF of 40%
-Updated echocardiogram with EF of 50%
-Plan for ICD today
-Updated over the phone on 09/16
-Cardiology cleared for discharge
-Possible discharge either later today or in a.m. pending PT and OT evaluation
# Nasal contusion
-No pain or bleeding currently
-Check nasal x-ray
# Coronary artery disease
# Recent STEMI status post LAD stent
-Continue aspirin, Plavix
#History of ischemic cardiomyopathy
-EF of 40%
Mild mitral regurgitation
Essential hypertension
-Continue lisinopril, metoprolol
Prediabetes
Hyperlipidemia
-Continue statin
GERD
History of HCV status posttreatment
Obesity
Full code
DVT prophylaxis�SCDs
Regular diet
Anticipated Discharge: Today
Subjective/Interval History
-
Date of Service: September 18, 2023
Patient denies any chest pain or shortness of breath.
Objective Data
-
Labs:
Laboratory Results
09/18/23
07:52
WBC Pending
Hgb Pending
Hct Pending
Plt Count Pending
Sodium Pending
Potassium Pending
Chloride Pending
Carbon Dioxide Pending
BUN Pending
Creatinine Pending
Glucose Pending
Calcium Pending
Vital Signs:
Vital Signs
Temp Pulse Resp BP Pulse Ox
97.8 F 68 15 121/65 96
09/18/23 07:30 09/18/23 08:37 09/18/23 07:30 09/18/23 08:37 09/18/23 07:30
I&O
09/17/23 09/18/23 09/19/23
06:59 06:59 06:59
Intake Total 840 / 840 480 / 480
Output Total 400 / 400 300 / 300
Balance 840 / 840 80 / 80 -300 / -300
[2023-09-18 08:45] LABS: Blood Urea Nitrogen 19 mg/dl (9-20); Calcium 9.3 mg/dl (8.4-10.2); Carbon Dioxide 21 mmol/L (22-30); Chloride 103 mmol/L (98-107); Estimated Creatinine Clearance 97 ml/min; Glucose 125 mg/dl (70-99); Magnesium 1.9 mg/dl (1.6-2.3); Potassium 4.2 mmol/L (3.5-5.1); Sodium 136 mmol/L (135-145); eGFR > 60.00
[2023-09-18 08:46] LABS: Hematocrit 38.7 % (39.0-52.0); Hemoglobin 12.9 g/dL (13.0-18.0); Mean Corp Hgb Conc. 33.3 g/dL (33.0-37.0); Mean Corpuscular Hgb 30.1 pg (27.0-31.0); Mean Corpuscular Volume 90.2 fL (80.0-94.0); Mean Platelet Volume 10.4 fL (7.4-10.4); Platelet Count 216 10^3/uL (130-400); Red Blood Cell Count 4.29 10^6/uL (4.70-6.10); Red Cell Dist. Width 12.3 % (11.5-14.5); White Blood Cell Count 12.4 10^3/uL (4.8-10.8)
--- NOTE | 2023-09-18 09:55 | W.PN.UPDATE ---
Update Note
Progress Note Update
No ICD complications detected. CXR, EKG, ICD site, tele all good. Cardiology followp arranged.
Given his syncope/aborted cardiac arrest he understands that he cannot drive a car for 6 months (restriction from syncope and not related to ICD implant)
All questions answered.
Cardiology will sign off.
[2023-09-18 11:00] VITALS: BP 150/69
--- NOTE | 2023-09-18 12:16 | CM ---
Addendum entered by Stephanie Subramanian 09/18/23 15:01:
Plan: discharge to home; will resume outpatient cardiac rehab; will transport home
Addendum entered by Stephanie Subramanian 09/18/23 15:00:
Per PT, no skilled PT needed; will resume cardiac rehab
Original Note:
Met with patient at bedside
IMM benefit explained; form signed @ 1207
Plan: discharge to home; will provide transport; will monitor for DC needs
--- NOTE | 2023-09-18 12:38 | PN.CDI ---
CDI
- -
CDI:
Physician Documentation Request
Admit Date: 09/16/23 10:30
Dear Doctor Padilla,
Hospitalist progress notes state 'Syncopal episode without prodrome suggestive of cardiac arrhythmia'
09/16 ICD report states '...... 77 year old gentleman with CAD, NSTEMI with mild LAD occlusion presented with out of hospital cardiac arrest with fall and facial injury high suspicion for ventricular arrhythmia with donal-apical scarring with wall
motion abnormality is recommended ICD placement '
Please indicate in your progress notes if you are in agreement that the above diagnosis is valid for this patient:
____ - Cardiac arrest is a valid diagnosis (Please include it in your progress notes)
____ - Cardiac arrest is not a valid diagnosis for this patient
____ - Unable to determine
Use of terms such as suspected, likely, concern for, or probable are acceptable for a diagnosis that is being evaluated, monitored or treated as if it exists and can be coded in the inpatient setting, when documented at the time of discharge.
Thank you,
Stefanie Thrasher RN, BSN
CDI Specialist
tiger text
Please use your independent medical judgment in providing your response.
--- NOTE | 2023-09-18 13:49 | W.DCSUMMARY ---
Discharge Summary
Discharge Data
Date of Admission: 09/16/23
Date of Discharge: 09/18/23
-
Pending Results: No
Hospital Course
Patient 77 years old male with history of CAD with recent NSTEMI on June 2023 with drug-eluting stents to LAD, ischemic cardiomyopathy with EF of 40%, prediabetes mellitus, dyslipidemia, presented to the hospital syncope event. Cardiology
consulted. Cardiology felt that his syncope was related to either VT VF versus sick sinus syndrome from an arrhythmia perspective although improving because it was not captured by any cardiac device. He had a follow-up show EF 50%, mild mitral
regurgitation, mild tricuspid regurgitation. EP cardiology recommended ICD placement. Patient underwent single-chamber implantable cardioverter defibrillator on 09/15. No postprocedural complications. Patient seen by PT and OT and they felt that
he was independent with ambulation. Otherwise, patient is back to baseline. Cardiology cleared him for discharge today.
Duration: 35 minutes
Discharge Plan
-
Patient Disposition: Home (Routine Discharge)
Discharge Diagnosis/Procedures: Syncope. Implantable cardiac defibrillator implant. Coronary artery disease.
Condition: Fair
Diet: Low Cholesterol
Driving Restrictions: No driving for 1 week
Bathing Restrictions: OK to Shower
Blood Work: Please PCP to order CBC, BMP within 1 week
Stand Alone Forms: DC Inst - Implanted Device
Referrals:
Lilliam Batista MD [Family Provider] -
Sabine Ahuja CRNP [Specified Professional Personl] - 09/24/23 10:00 am (Incision check appointment)
Prescriptions:
Continued
clopidogrel 75 mg Tablet
75 mg PO DAILY Qty: 30 0RF
metoprolol succinate 25 mg Tablet Extended Release 24 Hr
25 mg PO BID Qty: 60 0RF
lisinopril 2.5 mg Tablet
2.5 mg PO DAILY Qty: 30 0RF
atorvastatin 20 mg Tablet
20 mg PO QPM
aspirin 81 mg Tablet,Delayed Release (Dr/Ec)
81 mg PO DAILY
cyanocobalamin (vitamin B-12) 500 mcg Tablet
500 mcg PO DAILY
coenzyme Q10 [CoQ-10] 100 mg Capsule
100 mg PO BID
cholecalciferol (vitamin D3) 25 mcg (1,000 unit) Tablet
25 mcg PO DAILY
multivitamin with folic acid [Tab-A-Liz] 400 mcg Tablet
1 tab PO DAILY
Patient Comments:
09/15/2023, also contains vitamin D3 per spouse.
bethanechol chloride 5 mg Tablet
5 mg 1XD
Discharge Orders:
Discharge Patient (As Directed); Ordered 09/18/23
Ordered By: Paul Causey
Discharge Date and Time
Discharge Date/Time: 09/18/23 15:17
Print Language: SYRIAN
--- NOTE | 2023-09-18 14:20 | PTCARENOTE ---
Patient medically cleared for discharge pending PT/OT evaluation. Patient may resume cardiac rehab as previously as per MD.
[2023-09-18 14:40] VITALS: BP 138/86; PULSE 67
--- NOTE | 2023-09-18 14:46 | PTOTSP ---
The patient is independent with ambulation and elevations, no mobility deficits noted. No PT need identified at this time, will sign off.
--- NOTE | 2023-09-18 15:02 | PTCARENOTE ---
Reviewed discharge instructions with patient. Patient verbalizes understanding of all teaching. Patient given pacemaker/ICD wallet card. Peripheral IV removed. Tele removed. Patient assisted with getting dressed. Denies any questions at this time.
will be picking up patient.
[2023-09-18 15:15] VITALS: BP 142/70
--- NOTE | 2023-09-18 16:06 | PTCARENOTE ---
Patient discharged. is transport. Reviewed ICD site care and all discharge instructions. Patient left via wheelchair accompanied by staff.
== END 2023-09-18 15:17 | disposition home or self-care (01) | DRG 277 ==
LOC: 4 EAST ACU 10:30
PROVIDERS: Internal Medicine Cardiovascular Disease; Nurse Practitioner Adult Health; ADMITTING PHYSICIAN Hospitalist; ATTENDING PHYSICIAN Hospitalist; CONSULT PHYSICIAN Internal Medicine Cardiovascular Disease; EMERGENCY PHYSICIAN Emergency Medicine; FAMILY PHYSICIAN Emergency Medicine
PROC: 0JH608Z Insertion of Defibrillator Generator into Chest Subcutaneous Tissue and Fascia, Open Approach (ICD-10-PCS; 2023-09-17)
PROC: 02H63KZ Insertion of Defibrillator Lead into Right Atrium, Percutaneous Approach (ICD-10-PCS; 2023-09-17)
DX: I47.20 Ventricular tachycardia, unspecified (principal); I49.5 Sick sinus syndrome; I46.2 Cardiac arrest due to underlying cardiac condition; I25.10 Atherosclerotic heart disease of native coronary artery without angina pectoris; I25.5 Ischemic cardiomyopathy; I10 Essential (primary) hypertension; I49.01 Ventricular fibrillation; K21.9 Gastro-esophageal reflux disease without esophagitis; R73.03 Prediabetes; E66.9 Obesity, unspecified; S00.33XA Contusion of nose, initial encounter; W07.XXXA Fall from chair, initial encounter; I08.1 Rheumatic disorders of both mitral and tricuspid valves; E78.00 Pure hypercholesterolemia, unspecified; I25.2 Old myocardial infarction; Z68.30 Body mass index [BMI] 30.0-30.9, adult; Z79.02 Long term (current) use of antithrombotics/antiplatelets; Z79.82 Long term (current) use of aspirin; Z79.899 Other long term (current) drug therapy; Z86.19 Personal history of other infectious and parasitic diseases; Z87.891 Personal history of nicotine dependence; Z95.5 Presence of coronary angioplasty implant and graft
CPT/HCPCS: 93308; 33249; 70160; 70450; 71045; 72220; 80048; 80053; 83735; 84484; 85025; 85027; 93005; 93321; 93325; 97162; 99285; C1722; C1777; C1892

== ENCOUNTER → 2023-09-23 07:41 | Outpatient (REF) | payer MEDICARE, OTHER, SELFPAY ==
[2023-09-23 09:32] LABS: % Basophils 0.5 % (0-2); % Eosinophils 2.6 % (0-6); % Immature Granulocytes 0.3 % (0-0.5); % Lymphocytes 23.4 % (20.5-51.1); % Monocytes 11.9 % (1.7-9.3); % Neutrophils 61.3 % (42.2-75.2); Absolute Eosinophils 0.2 10^3/uL (0-0.7); Absolute Lymphocytes 1.7 10^3/uL (1.2-3.4); Absolute Monocytes 0.9 10^3/uL (0.1-0.6); Absolute Neutrophils 4.5 10^3/uL (1.4-6.5); Hematocrit 36.9 % (39.0-52.0); Hemoglobin 12.6 g/dL (13.0-18.0); Mean Corp Hgb Conc. 34.1 g/dL (33.0-37.0); Mean Corpuscular Hgb 30.8 pg (27.0-31.0); Mean Corpuscular Volume 90.2 fL (80.0-94.0); Mean Platelet Volume 10.4 fL (7.4-10.4); Nucleated Red Blood Cells % 0 % (-); Platelet Count 195 10^3/uL (130-400); Red Blood Cell Count 4.09 10^6/uL (4.70-6.10); Red Cell Dist. Width 12.3 % (11.5-14.5); White Blood Cell Count 7.3 10^3/uL (4.8-10.8)
[2023-09-23 09:58] LABS: ALT (SGPT) 25 U/L (0-50); AST (SGOT) 34 U/L (17-59); Albumin 4.1 g/dl (3.5-5.0); Alkaline Phosphatase 66 U/L (38-126); Blood Urea Nitrogen 16 mg/dl (9-20); Calcium 8.9 mg/dl (8.4-10.2); Carbon Dioxide 22 mmol/L (22-30); Chloride 107 mmol/L (98-107); Glucose 109 mg/dl (70-99); Potassium 4.5 mmol/L (3.5-5.1); Sodium 136 mmol/L (135-145); Total Bilirubin 1.1 mg/dl (0.2-1.3); Total Protein 7.1 g/dl (6.3-8.2); eGFR > 60.00
== END ==
LOC: REG 07:41
PROVIDERS: ATTENDING PHYSICIAN Emergency Medicine
DX: E78.2 Mixed hyperlipidemia (principal); R73.03 Prediabetes; I51.89 Other ill-defined heart diseases; I25.2 Old myocardial infarction
CPT/HCPCS: 36415; 80053; 85025

== ENCOUNTER → 2023-09-30 08:20 | Outpatient (REF) | payer MEDICARE, OTHER, SELFPAY ==
[2023-09-30 09:44] LABS: % Basophils 0.6 % (0-2); % Eosinophils 2.3 % (0-6); % Immature Granulocytes 0.3 % (0-0.5); % Monocytes 12.4 % (1.7-9.3); % Neutrophils 59.4 % (42.2-75.2); Absolute Eosinophils 0.2 10^3/uL (0-0.7); Absolute Lymphocytes 1.7 10^3/uL (1.2-3.4); Absolute Monocytes 0.9 10^3/uL (0.1-0.6); Absolute Neutrophils 4.1 10^3/uL (1.4-6.5); Hematocrit 39.8 % (39.0-52.0); Hemoglobin 13.2 g/dL (13.0-18.0); Mean Corp Hgb Conc. 33.2 g/dL (33.0-37.0); Mean Corpuscular Hgb 30.8 pg (27.0-31.0); Mean Corpuscular Volume 92.8 fL (80.0-94.0); Mean Platelet Volume 10.3 fL (7.4-10.4); Nucleated Red Blood Cells % 0 % (-); Platelet Count 184 10^3/uL (130-400); Red Blood Cell Count 4.29 10^6/uL (4.70-6.10); Red Cell Dist. Width 12.6 % (11.5-14.5); White Blood Cell Count 6.9 10^3/uL (4.8-10.8)
[2023-09-30 10:39] LABS: Iron 110 ug/dl (49-181)
[2023-09-30 10:49] LABS: Percent Saturation 38 % (20-50); Total Iron Binding Capacity 287 ug/dl (261-462)
== END ==
LOC: REG 08:20
PROVIDERS: ATTENDING PHYSICIAN Emergency Medicine
DX: Z09 Encounter for follow-up examination after completed treatment for conditions other than malignant neoplasm (principal); D64.9 Anemia, unspecified; R58 Hemorrhage, not elsewhere classified
CPT/HCPCS: 36415; 82728; 83540; 83550; 85025

== ENCOUNTER 2023-11-05 09:48 | Outpatient (RCR) | payer MEDICARE, OTHER, SELFPAY | END 2023-11-05 23:59 | disposition home or self-care (01) | LOC: CRHB 09:48 | PROVIDERS: ATTENDING PHYSICIAN Internal Medicine Cardiovascular Disease | DX: I21.4 Non-ST elevation (NSTEMI) myocardial infarction (principal); Z95.5 Presence of coronary angioplasty implant and graft; I25.10 Atherosclerotic heart disease of native coronary artery without angina pectoris | CPT/HCPCS: G0422; G0423 ==

== ENCOUNTER → 2023-11-17 06:40 | Outpatient (REF) | payer MEDICARE, OTHER, SELFPAY | LOC: RAD 06:40 | PROVIDERS: ATTENDING PHYSICIAN Emergency Medicine | DX: Z87.891 Personal history of nicotine dependence (principal) | CPT/HCPCS: 76770 ==

== ENCOUNTER 2023-11-17 08:30 | Outpatient (RCR) | payer MEDICARE, OTHER, SELFPAY | END 2023-11-17 23:59 | disposition home or self-care (01) | LOC: CRHB 08:30 | PROVIDERS: ATTENDING PHYSICIAN Internal Medicine Cardiovascular Disease; FAMILY PHYSICIAN Family Medicine | DX: I25.10 Atherosclerotic heart disease of native coronary artery without angina pectoris (principal); Z95.5 Presence of coronary angioplasty implant and graft; I25.2 Old myocardial infarction | CPT/HCPCS: G0422; G0423 ==

== ENCOUNTER → 2023-12-09 06:28 | Outpatient (REF) | payer MEDICARE, OTHER, SELFPAY ==
[2023-12-09 11:09] LABS: Glycohemoglobin (HgbA1c) 6.1 % (4.0-5.6)
== END ==
LOC: REG 06:28
PROVIDERS: ATTENDING PHYSICIAN Emergency Medicine; FAMILY PHYSICIAN Family Medicine
DX: E78.2 Mixed hyperlipidemia (principal); R73.03 Prediabetes
CPT/HCPCS: 36415; 83036

== ENCOUNTER → 2024-03-23 07:04 | Outpatient (REF) | payer MEDICARE, OTHER, SELFPAY ==
[2024-03-23 08:43] LABS: HDL Cholesterol 47 mg/dl; LDL Cholesterol, Calculated 52 mg/dl; Total Cholesterol 130 mg/dl (50-199); Triglyceride 155 mg/dl (10-149); Very Low Density Lipoprotein 31 mg/dl (0-30)
== END ==
LOC: REG 07:04
PROVIDERS: ATTENDING PHYSICIAN Internal Medicine Cardiovascular Disease; FAMILY PHYSICIAN Family Medicine
DX: R55 Syncope and collapse (principal); E78.2 Mixed hyperlipidemia
CPT/HCPCS: 36415; 80061

== ENCOUNTER → 2024-12-13 07:15 | Outpatient (REF) | payer MEDICARE, OTHER, SELFPAY ==
[2024-12-13 08:25] LABS: Urine Character Clear (Clear)
[2024-12-13 08:26] LABS: Hematocrit 43.5 % (39.0-52.0); Hemoglobin 14.6 g/dL (13.0-18.0); Mean Corp Hgb Conc. 33.6 g/dL (33.0-37.0); Mean Corpuscular Volume 91.4 fL (80.0-94.0); Nucleated Red Blood Cells % 0 % (-); Platelet Count 219 10^3/uL (130-400); Red Cell Dist. Width 12.4 % (11.5-14.5)
[2024-12-13 08:33] LABS: Urine Red Blood Cell 0-2 /HPF (0-2)
[2024-12-13 08:55] LABS: ALT (SGPT) 32 U/L (0-50); AST (SGOT) 34 U/L (17-59); Albumin 4.5 g/dl (3.5-5.0); Alkaline Phosphatase 62 U/L (38-126); Blood Urea Nitrogen 19 mg/dl (9-20); Calcium 9.4 mg/dl (8.4-10.2); Carbon Dioxide 24 mmol/L (22-30); Chloride 108 mmol/L (98-107); Glucose 123 mg/dl (70-99); HDL Cholesterol 45 mg/dl; LDL Cholesterol, Calculated 70 mg/dl; Potassium 4.7 mmol/L (3.5-5.1); Sodium 139 mmol/L (135-145); Total Protein 7.6 g/dl (6.3-8.2); Very Low Density Lipoprotein 30 mg/dl (0-30); eGFR > 60.00
[2024-12-13 09:18] LABS: Vitamin D, 25-OH*** 35.5 ng/mL (30-80)
[2024-12-13 09:32] LABS: PSA, Total - Screen 5.42 ng/ml (0.0-4.0); TSH 2.11 uIU/ml (0.47-4.68)
[2024-12-13 09:53] LABS: Glycohemoglobin (HgbA1c) 6.2 % (4.0-5.6)
== END ==
LOC: REG 07:15
PROVIDERS: ATTENDING PHYSICIAN Family Medicine
DX: Z00.00 Encounter for general adult medical examination without abnormal findings (principal); R73.03 Prediabetes; E78.5 Hyperlipidemia, unspecified; E55.9 Vitamin D deficiency, unspecified; Z12.5 Encounter for screening for malignant neoplasm of prostate
CPT/HCPCS: 36415; 80053; 80061; 81003; 81015; 82306; 83036; 84443; 85025; G0103

== ENCOUNTER → 2025-01-06 09:21 | Outpatient (REF) | payer MEDICARE, OTHER, SELFPAY | LOC: EMG 09:21 | PROVIDERS: ATTENDING PHYSICIAN Family Medicine | DX: R20.2 Paresthesia of skin (principal); G56.03 Carpal tunnel syndrome, bilateral upper limbs | CPT/HCPCS: 95886; 95911 ==

== ENCOUNTER → 2025-03-03 07:09 | Outpatient (REF) | payer MEDICARE, OTHER, SELFPAY ==
[2025-03-03 07:51] LABS: INR 1.00; PT 13.5 Sec (11.4-14.6)
== END ==
LOC: REG 07:09
PROVIDERS: ATTENDING PHYSICIAN Internal Medicine Gastroenterology
DX: B18.2 Chronic viral hepatitis C (principal)
CPT/HCPCS: 36415; 85610; 87522

== ENCOUNTER → 2025-03-16 06:49 | Outpatient (REF) | payer MEDICARE, OTHER, SELFPAY | LOC: RAD 06:49 | PROVIDERS: ATTENDING PHYSICIAN Internal Medicine Gastroenterology; FAMILY PHYSICIAN Family Medicine | DX: B18.2 Chronic viral hepatitis C (principal) | CPT/HCPCS: 76700 ==